=== PATIENT | male | born 1940 | race Two or more races ===

== ENCOUNTER 2018-08-27 15:20 | Inpatient (IN) | payer MEDICARE, OTHER ==
[~2018-08-27] VITALS: Ht 182.9 cm; Wt 80.9 kg
[2018-08-27 16:00] LABS: BASOPHILS # (AUTO) 0.1 K/uL (0.0-8.0); BASOPHILS % (AUTO) 1.1 % (0.0-2.0); EOSINOPHILS # (AUTO) 0.2 K/uL (0.0-0.7); EOSINOPHILS % (AUTO) 3.1 % (0.0-7.0); LYMPHOCYTES # (AUTO) 1.7 K/uL (20.0-40.0); LYMPHOCYTES % (AUTO) 33.4 % (20.5-51.5); MEAN CORPUSCULAR HEMOGLOBIN 26.4 uug (23.8-33.4); MEAN CORPUSCULAR HGB CONC 32 g/dL (32.5-36.3); MEAN CORPUSCULAR VOLUME 82.1 fL (73.0-96.2); MONOCYTES # (AUTO) 0.5 K/uL (2.0-10.0); MONOCYTES % (AUTO) 9.2 % (0.0-11.0); NEUTROPHILS # (AUTO) 2.7 K/uL (1.8-8.9); NEUTROPHILS % (AUTO) 53.2 % (38.5-71.5); PLATELET COUNT (AUTO) 284 K/uL (152-348); RED BLOOD CELL COUNT(AUTO) 3.04 MIL/uL (4.06-5.63); WHITE BLOOD COUNT (AUTO) 5.1 K/uL (3.6-10.2)
[2018-08-27 16:03] LABS: *BILIRUBIN,URIN NEGATIVE (NEGATIVE); *BLOOD, URINE NEGATIVE (NEGATIVE); *CLARITY,URINE CLEAR (CLEAR); *COLOR,URINE YELLOW (YELLOW); *KETONES,URINE NEGATIVE (NEGATIVE); *UROBILINOGEN,URINE 0.2 E.U./dl (NORMAL); LEUKOCYTE ESTERASE ,URINE NEGATIVE (NEGATIVE); NITRITE, URINE NEGATIVE (NEGATIVE); PH,URINE 5.5 (5.0-8.0); UGLUCOSE NEGATIVE (NEGATIVE)
[2018-08-27 16:22] LABS: CARBON DIOXIDE 24 mmol/L (21-32); CHLORIDE 108 mmol/L (98-107); GLUCOSE 130 mg/dL (74-106); POTASSIUM 3.5 mmol/L (3.5-5.1); UREA NITROGEN, BLOOD 26 mg/dL (7-18)
[2018-08-27 16:32] LABS: ALANINE AMINOTRANSFERASE 16 U/L (16-63); ALKALINE PHOSPHATASE 65 U/L (50-136); ASPARTATE AMINOTRANSFERASE 13 U/L (15-37); BILIRUBIN,DIRECT 0.1 mg/dL (0.0-0.2); BILIRUBIN,TOTAL 0.4 mg/dL (0.2-1.0); TOTAL PROTEIN, SERUM 6.6 g/dL (6.4-8.2)
[2018-08-27] MEDS ORDERED: LIDOCAINE HCL 2% 20 ML VIAL ONE (17:24)
[2018-08-27] MEDS ORDERED: FURO-152 PO (17:52)
[2018-08-27] MEDS ORDERED: MAGN400T6 PO (17:52)
[2018-08-27] MEDS ORDERED: DONE10TA44 PO (17:52)
[2018-08-27] MEDS ORDERED: LINA145C PO (17:52)
[2018-08-27] MEDS ORDERED: LORA10TA7 PO (17:52)
[2018-08-27] MEDS ORDERED: CARB-93 PO (17:52)
[2018-08-27] MEDS ORDERED: PRAZ1CAP2 PO (17:52)
[2018-08-27] MEDS ORDERED: LOSA1TAB42 PO (17:52)
[2018-08-27] MEDS ORDERED: PROP10TA68 PO (17:52)
[2018-08-27] MEDS ORDERED: PANT40TA2 PO (17:52)
[2018-08-27] MEDS ORDERED: QUET25TA PO (17:52)
[2018-08-27] MEDS ORDERED: TAMS-3 PO (17:52)
[2018-08-27] MEDS ORDERED: DULO60CA45 PO (17:52)
[2018-08-27] MEDS ORDERED: MELO-107 PO (17:52)
[2018-08-27] MEDS ORDERED: GABA-534 PO (17:52)
[2018-08-27 18:20] LABS: CSF GLUCOSE 80 mg/dL (40-70)
[2018-08-27 18:21] LABS: CSF PROTEIN 198 mg/dL (15-45)
[2018-08-27] MEDS ORDERED: SWABABLE VALVE TRANSFER SET EA MC ONE (18:44)
[2018-08-27] MEDS ORDERED: IV NORMAL SALINE 250 ML IV ONE (18:44)
[2018-08-27] MEDS ORDERED: NORMAL SALINE FLUSH 10 ML DISP.SYRIN ONE (18:44)
[2018-08-27] MEDS ORDERED: IOHEXOL 350 100 ML INFUS..BTL ONE (18:44)
[2018-08-27] MEDS ORDERED: MORPHINE SULFATE 4 MG/1 ML DISP.SYRIN IV ONE (20:45)
[2018-08-27] MEDS ORDERED: MORPHINE SULFATE 4 MG/1 ML DISP.SYRIN ONE (20:46)
[2018-08-27 21:40] VITALS: BP 140/53
[2018-08-27] MEDS ORDERED: ONDANSETRON 4 MG/2 ML VIAL IV PRN (21:45)
[2018-08-27] MEDS ORDERED: MAGNESIUM HYDROXIDE 30 ML LIQUID UDC PO PRN (21:45)
[2018-08-27 23:44] VITALS: BP 133/57
[2018-08-27] MEDS: MORPHINE SULFATE 2 MG/1 ML DISP.SYRIN IV PRN (23:52)
[2018-08-28] MEDS: MORPHINE SULFATE 2 MG/1 ML DISP.SYRIN IV PRN ×2 (02:59→06:19)
[2018-08-28 03:44] VITALS: BP 112/59
[2018-08-28] MEDS: PANTOPRAZOLE SODIUM 40 MG TABLET.DR PO SCH (06:18)
[2018-08-28 06:44] LABS: BASOPHILS # (AUTO) 0.1 K/uL (0.0-8.0); BASOPHILS % (AUTO) 1.3 % (0.0-2.0); EOSINOPHILS # (AUTO) 0.2 K/uL (0.0-0.7); EOSINOPHILS % (AUTO) 3.1 % (0.0-7.0); HEMATOCRIT 24.1 % (36.7-47.1); LYMPHOCYTES # (AUTO) 1.9 K/uL (20.0-40.0); LYMPHOCYTES % (AUTO) 36.6 % (20.5-51.5); MEAN CORPUSCULAR HEMOGLOBIN 26.8 uug (23.8-33.4); MEAN CORPUSCULAR HGB CONC 33 g/dL (32.5-36.3); MEAN CORPUSCULAR VOLUME 81.3 fL (73.0-96.2); MONOCYTES # (AUTO) 0.4 K/uL (2.0-10.0); MONOCYTES % (AUTO) 8.1 % (0.0-11.0); NEUTROPHILS # (AUTO) 2.7 K/uL (1.8-8.9); NEUTROPHILS % (AUTO) 50.9 % (38.5-71.5); PLATELET COUNT (AUTO) 260 K/uL (152-348); RED BLOOD CELL COUNT(AUTO) 2.97 MIL/uL (4.06-5.63); WHITE BLOOD COUNT (AUTO) 5.3 K/uL (3.6-10.2)
[2018-08-28 07:04] LABS: ALANINE AMINOTRANSFERASE 15 U/L (16-63); ALKALINE PHOSPHATASE 64 U/L (50-136); ASPARTATE AMINOTRANSFERASE 6 U/L (15-37); BILIRUBIN,TOTAL 0.3 mg/dL (0.2-1.0); CARBON DIOXIDE 25 mmol/L (21-32); CHLORIDE 106 mmol/L (98-107); CHOLESTEROL 142 mg/dL (<200); CREATININE 1.1 mg/dL (0.6-1.3); GLUCOSE 105 mg/dL (74-106); HDL CHOLESTEROL 48 mg/dL (40-60); MAGNESIUM 2.2 mg/dL (1.8-2.4); PHOSPHOROUS 2.7 mg/dL (2.5-4.9); POTASSIUM 3.4 mmol/L (3.5-5.1); THYROID STIMULATING HORMONE 2.584 mIU/mL (0.358-3.740); TOTAL PROTEIN, SERUM 6.3 g/dL (6.4-8.2); TRIGLYCERIDES 72 MG/DL (30-150); UREA NITROGEN, BLOOD 19 mg/dL (7-18)
[2018-08-28 07:13] LABS: IRON, SERUM 14 ug/dL (50-175)
[2018-08-28] MEDS: FUROSEMIDE 20 MG TABLET PO SCH (08:27)
[2018-08-28] MEDS: DULOXETINE 60 MG CAPSULE.DR PO SCH (08:27)
[2018-08-28] MEDS: CARBIDOPA/LEVODOPA 25-100MG TABLET PO SCH ×3 (08:27→16:28)
[2018-08-28] MEDS: MAGNESIUM OXIDE 400 MG TABLET PO SCH (08:27)
[2018-08-28] MEDS: LORATADINE 10 MG TABLET PO SCH (08:27)
[2018-08-28] MEDS: DONEPEZIL 10 MG TABLET PO SCH (08:27)
[2018-08-28] MEDS ORDERED: PANTOPRAZOLE SODIUM 40 MG TABLET.DR PO SCH (09:00)
[2018-08-28 11:19] VITALS: BP 138/58
[2018-08-28] MEDS ORDERED: POTASSIUM CHLORIDE 20 MEQ TAB.PRT.SR PO ONE (13:15)
[2018-08-28 15:08] VITALS: BP 124/67
[2018-08-28] MEDS ORDERED: DEXTROSE 50% 50 ML DISP.SYRIN IV PRN (15:15)
[2018-08-28] MEDS: BLOOD SUGAR DIAGNOSTIC 1 EACH STRIP VI SCH ×2 (16:30→20:39)
[2018-08-28] MEDS ORDERED: HYDR-3895 PO (16:31)
[2018-08-28] MEDS ORDERED: PREG50CA PO (16:32)
[2018-08-28] MEDS ORDERED: METF-440 PO (16:33)
[2018-08-28] MEDS: DOCUSATE SODIUM 100 MG CAPSULE PO SCH (20:34)
[2018-08-28] MEDS: GABAPENTIN 300 MG CAPSULE PO SCH (20:34)
[2018-08-28] MEDS: TAMSULOSIN HCL 0.4 MG CAP.SR.24H PO SCH (20:34)
[2018-08-28] MEDS: QUETIAPINE FUMARATE 25 MG TABLET PO SCH (20:34)
[2018-08-28 20:38] VITALS: BP 123/59
[2018-08-28] MEDS ORDERED: DOCUSATE SODIUM 250 MG CAPSULE PO SCH (21:00)
[2018-08-28 22:38] LABS: *OCCULT BLOOD STOOL NEGATIVE (NEGATIVE)
[2018-08-29 01:21] VITALS: BP 125/56
[2018-08-29] MEDS: PANTOPRAZOLE SODIUM 40 MG TABLET.DR PO SCH (06:15)
[2018-08-29] MEDS: BLOOD SUGAR DIAGNOSTIC 1 EACH STRIP VI SCH ×4 (06:35→20:57)
[2018-08-29 06:43] VITALS: BP 108/54
[2018-08-29 08:34] LABS: CARBON DIOXIDE 28 mmol/L (21-32); CHLORIDE 105 mmol/L (98-107); CREATININE 0.9 mg/dL (0.6-1.3); GLUCOSE 117 mg/dL (74-106); POTASSIUM 3.8 mmol/L (3.5-5.1); UREA NITROGEN, BLOOD 19 mg/dL (7-18)
[2018-08-29] MEDS: MAGNESIUM OXIDE 400 MG TABLET PO SCH (08:41)
[2018-08-29] MEDS: FUROSEMIDE 20 MG TABLET PO SCH (08:41)
[2018-08-29] MEDS: DULOXETINE 60 MG CAPSULE.DR PO SCH (08:41)
[2018-08-29] MEDS: CARBIDOPA/LEVODOPA 25-100MG TABLET PO SCH ×3 (08:41→16:38)
[2018-08-29] MEDS: LORATADINE 10 MG TABLET PO SCH (08:41)
[2018-08-29] MEDS: DONEPEZIL 10 MG TABLET PO SCH (08:41)
[2018-08-29] MEDS: LACTULOSE 20 G/30 ML LIQUID UDC PO PRN (11:12)
[2018-08-29 11:22] LABS: BASOPHILS # (AUTO) 0.1 K/uL (0.0-8.0); BASOPHILS % (AUTO) 1.1 % (0.0-2.0); EOSINOPHILS # (AUTO) 0.2 K/uL (0.0-0.7); EOSINOPHILS % (AUTO) 3.2 % (0.0-7.0); HEMATOCRIT 26.3 % (36.7-47.1); HEMOGLOBIN 8.5 g/dL (12.5-16.3); LYMPHOCYTES # (AUTO) 1.9 K/uL (20.0-40.0); LYMPHOCYTES % (AUTO) 31.3 % (20.5-51.5); MEAN CORPUSCULAR HEMOGLOBIN 26.2 uug (23.8-33.4); MEAN CORPUSCULAR HGB CONC 32 g/dL (32.5-36.3); MONOCYTES # (AUTO) 0.5 K/uL (2.0-10.0); MONOCYTES % (AUTO) 7.8 % (0.0-11.0); NEUTROPHILS # (AUTO) 3.4 K/uL (1.8-8.9); NEUTROPHILS % (AUTO) 56.6 % (38.5-71.5); PLATELET COUNT (AUTO) 291 K/uL (152-348); RED BLOOD CELL COUNT(AUTO) 3.25 MIL/uL (4.06-5.63); WHITE BLOOD COUNT (AUTO) 6.1 K/uL (3.6-10.2)
[2018-08-29 11:42] VITALS: BP 105/59
[2018-08-29] MEDS: INSULIN REGULAR, HUMAN 300 UNIT/3 ML VIAL SQ PRN (11:52)
[2018-08-29 15:19] VITALS: BP 156/60
[2018-08-29 20:31] VITALS: BP 130/58
[2018-08-29] MEDS: QUETIAPINE FUMARATE 25 MG TABLET PO SCH (20:51)
[2018-08-29] MEDS: DOCUSATE SODIUM 100 MG CAPSULE PO SCH (20:51)
[2018-08-29] MEDS: TAMSULOSIN HCL 0.4 MG CAP.SR.24H PO SCH (20:52)
[2018-08-29] MEDS: ACETAMINOPHEN 325 MG TABLET PO PRN (20:52)
[2018-08-29] MEDS: GABAPENTIN 300 MG CAPSULE PO SCH (20:52)
[2018-08-30] VITALS: BP 125/62
[2018-08-30 04:00] VITALS: BP 120/59
[2018-08-30 06:39] LABS: BASOPHILS # (AUTO) 0.1 K/uL (0.0-8.0); BASOPHILS % (AUTO) 1.1 % (0.0-2.0); EOSINOPHILS # (AUTO) 0.2 K/uL (0.0-0.7); EOSINOPHILS % (AUTO) 3.5 % (0.0-7.0); HEMATOCRIT 26.9 % (36.7-47.1); HEMOGLOBIN 8.9 g/dL (12.5-16.3); LYMPHOCYTES % (AUTO) 40.5 % (20.5-51.5); MEAN CORPUSCULAR HEMOGLOBIN 26.3 uug (23.8-33.4); MEAN CORPUSCULAR HGB CONC 33 g/dL (32.5-36.3); MEAN CORPUSCULAR VOLUME 79.5 fL (73.0-96.2); MONOCYTES # (AUTO) 0.5 K/uL (2.0-10.0); MONOCYTES % (AUTO) 9.4 % (0.0-11.0); NEUTROPHILS # (AUTO) 2.3 K/uL (1.8-8.9); NEUTROPHILS % (AUTO) 45.5 % (38.5-71.5); PLATELET COUNT (AUTO) 311 K/uL (152-348); RED BLOOD CELL COUNT(AUTO) 3.38 MIL/uL (4.06-5.63)
[2018-08-30] MEDS: PANTOPRAZOLE SODIUM 40 MG TABLET.DR PO SCH (06:45)
[2018-08-30] MEDS: BLOOD SUGAR DIAGNOSTIC 1 EACH STRIP VI SCH ×2 (06:49→11:32)
[2018-08-30 06:50] LABS: CARBON DIOXIDE 29 mmol/L (21-32); CHLORIDE 105 mmol/L (98-107); GLUCOSE 124 mg/dL (74-106); MAGNESIUM 2.4 mg/dL (1.8-2.4); PHOSPHOROUS 3.4 mg/dL (2.5-4.9); POTASSIUM 3.6 mmol/L (3.5-5.1); UREA NITROGEN, BLOOD 15 mg/dL (7-18)
[2018-08-30] MEDS: CARBIDOPA/LEVODOPA 25-100MG TABLET PO SCH ×2 (08:23→13:14)
[2018-08-30] MEDS: LORATADINE 10 MG TABLET PO SCH (08:23)
[2018-08-30] MEDS: MAGNESIUM OXIDE 400 MG TABLET PO SCH (08:23)
[2018-08-30] MEDS: FUROSEMIDE 20 MG TABLET PO SCH (08:23)
[2018-08-30] MEDS: DULOXETINE 60 MG CAPSULE.DR PO SCH (08:23)
[2018-08-30] MEDS: DONEPEZIL 10 MG TABLET PO SCH (08:23)
[2018-08-30] MEDS: LACTULOSE 20 G/30 ML LIQUID UDC PO PRN (10:42)
[2018-08-30] MEDS: INSULIN REGULAR, HUMAN 300 UNIT/3 ML VIAL SQ PRN (11:31)
[2018-08-30 11:36] VITALS: BP 124/58
[2018-08-30] MEDS: ACETAMINOPHEN 325 MG TABLET PO PRN (11:58)
[2018-08-30 15:30] VITALS: BP 118/61
== END 2018-08-30 15:30 | disposition home or self-care (01) | DRG 866 ==
LOC: ER 15:23 → MEDSURG3 21:18 → TELE3 21:39 → MEDSURG3 08-30 14:47
PROVIDERS: ADMIT Internal Medicine; ATTEND Hospitalist
PROC: 009U3ZX Drainage of Spinal Canal, Percutaneous Approach, Diagnostic (ICD-10-PCS; principal; 2018-08-27)
DX: B34.9 Viral infection, unspecified (principal); J98.11 Atelectasis; E44.1 Mild protein-calorie malnutrition; R51 Headache; Z90.49 Acquired absence of other specified parts of digestive tract; I25.10 Atherosclerotic heart disease of native coronary artery without angina pectoris; D50.0 Iron deficiency anemia secondary to blood loss (chronic); I25.2 Old myocardial infarction; E78.5 Hyperlipidemia, unspecified; K21.9 Gastro-esophageal reflux disease without esophagitis; Z86.010 Personal history of colon polyps; K44.9 Diaphragmatic hernia without obstruction or gangrene; I10 Essential (primary) hypertension; G30.9 Alzheimer's disease, unspecified; F02.80 Dementia in other diseases classified elsewhere, unspecified severity, without behavioral disturbance, psychotic disturbance, mood disturbance, and anxiety; K59.00 Constipation, unspecified; E11.40 Type 2 diabetes mellitus with diabetic neuropathy, unspecified; F32.9 Major depressive disorder, single episode, unspecified; F41.9 Anxiety disorder, unspecified; Z68.24 Body mass index [BMI] 24.0-24.9, adult; H53.8 Other visual disturbances; Z79.84 Long term (current) use of oral hypoglycemic drugs; I67.9 Cerebrovascular disease, unspecified; Z87.19 Personal history of other diseases of the digestive system; N28.1 Cyst of kidney, acquired
CPT/HCPCS: 36415; 70030-TC; 70450; 70496; 71045; 83550; 83605; 83735; 84100; 84157; 84443; 85025; 85651; 87040; 87086; 87400; 89051; 93005; 97116; 97530; A4663; G0378; J1815; J2270; J3490; J7050; Q9967

== ENCOUNTER 2018-12-24 09:29 | Emergency (ER) | payer MEDICARE, OTHER ==
[~2018-12-24] VITALS: Ht 170.2 cm; Wt 78.9 kg
[~2018-12-24 09:29] MED LIST: CARB-93 PO; DONE10TA44 PO; DULO60CA45 PO; FURO-152 PO; GABA-534 PO; HYDR-3895 PO; LINA145C PO; LORA10TA7 PO; LOSA1TAB42 PO; MAGN400T6 PO; METF-440 PO; PANT40TA2 PO; QUET25TA PO; TAMS-3 PO
[2018-12-24] MEDS ORDERED: HYDROMORPHONE 1 MG/1 ML DISP.SYRIN IM ONE (09:45)
[2018-12-24] MEDS ORDERED: ONDANSETRON 4 MG/2 ML VIAL IM ONE (09:45)
[2018-12-24] MEDS ORDERED: HYDROMORPHONE 2 MG/1 ML DISP.SYRIN ONE (09:49)
[2018-12-24] MEDS ORDERED: ONDANSETRON 4 MG/2 ML VIAL ONE (09:50)
[2018-12-24 10:22] LABS: BASOPHILS % (AUTO) 0.6 % (0.0-2.0); EOSINOPHILS # (AUTO) 0.2 K/uL (0.0-0.7); EOSINOPHILS % (AUTO) 2.7 % (0.0-7.0); HEMATOCRIT 37.3 % (36.7-47.1); HEMOGLOBIN 11.8 g/dL (12.5-16.3); LYMPHOCYTES # (AUTO) 1.9 K/uL (20.0-40.0); MEAN CORPUSCULAR HEMOGLOBIN 23.5 uug (23.8-33.4); MEAN CORPUSCULAR HGB CONC 32 g/dL (32.5-36.3); MONOCYTES # (AUTO) 0.5 K/uL (2.0-10.0); MONOCYTES % (AUTO) 5.5 % (0.0-11.0); NEUTROPHILS # (AUTO) 5.9 K/uL (1.8-8.9); NEUTROPHILS % (AUTO) 69.2 % (38.5-71.5); PLATELET COUNT (AUTO) 200 K/uL (152-348); RED BLOOD CELL COUNT(AUTO) 5.04 MIL/uL (4.06-5.63); WHITE BLOOD COUNT (AUTO) 8.6 K/uL (3.6-10.2)
[2018-12-24 10:26] LABS: CARBON DIOXIDE 27 mmol/L (21-32); CHLORIDE 104 mmol/L (98-107); CREATININE 1.1 mg/dL (0.6-1.3); GLUCOSE 123 mg/dL (74-106); POTASSIUM 4.2 mmol/L (3.5-5.1); UREA NITROGEN, BLOOD 22 mg/dL (7-18)
[2018-12-24 10:32] LABS: ALANINE AMINOTRANSFERASE 20 U/L (16-63); ALKALINE PHOSPHATASE 85 U/L (50-136); ASPARTATE AMINOTRANSFERASE 24 U/L (15-37); BILIRUBIN,TOTAL 0.4 mg/dL (0.2-1.0); TOTAL PROTEIN, SERUM 6.9 g/dL (6.4-8.2)
[2018-12-24 11:01] VITALS: BP 143/56
== END 2018-12-24 11:04 | disposition home or self-care (01) ==
LOC: ER 09:29
DX: M54.42 Lumbago with sciatica, left side (principal); I25.2 Old myocardial infarction; E11.9 Type 2 diabetes mellitus without complications; F32.9 Major depressive disorder, single episode, unspecified; F41.9 Anxiety disorder, unspecified; Z79.899 Other long term (current) drug therapy
CPT/HCPCS: 36415; 80053; 85025; 96372 ×2; 99283; J1170; J2405; A4663

== ENCOUNTER 2019-12-05 10:30 | Emergency (ER) | payer MEDICARE, OTHER ==
[~2019-12-05] VITALS: Ht 170.2 cm; Wt 77.1 kg
[~2019-12-05 10:30] MED LIST changes: -MAGN400T6 PO; +MAGN400T8 PO
--- NOTE | 2019-12-05 11:35 | NUR ---
Patient is back in room from Radiology. No new acute distress noted.
--- NOTE | 2019-12-05 12:14 | NUR ---
Patient discharged to home in stable condition. Written and verbal after care instructions given. Patient verbalizes understanding of instructions. Stressed follow up or return to ER for worsening s/s. Patient ambulating with steady gait. NAD noted
[2019-12-05 12:16] VITALS: BP 128/73
== END 2019-12-05 12:14 | disposition home or self-care (01) ==
LOC: ER 10:30
DX: S02.2XXA Fracture of nasal bones, initial encounter for closed fracture (principal); S70.12XA Contusion of left thigh, initial encounter; S09.90XA Unspecified injury of head, initial encounter; W01.190A Fall on same level from slipping, tripping and stumbling with subsequent striking against furniture, initial encounter; Y92.032 Bedroom in apartment as the place of occurrence of the external cause; I25.2 Old myocardial infarction; M54.2 Cervicalgia; R00.1 Bradycardia, unspecified; I44.0 Atrioventricular block, first degree; E11.9 Type 2 diabetes mellitus without complications; Z79.84 Long term (current) use of oral hypoglycemic drugs
CPT/HCPCS: 70450; 70486; 72125; 93005; A4663

== ENCOUNTER 2020-04-11 17:04 | Emergency (ER) | payer MEDICARE, OTHER ==
[~2020-04-11] VITALS: Ht 170.2 cm; Wt 77.1 kg
--- NOTE | 2020-04-11 17:26 | NUR ---
Dr Villa at the bedside for MSE.
[2020-04-11] MEDS ORDERED: IBUPROFEN 600 MG TABLET PO ONE (17:30)
--- NOTE | 2020-04-11 17:30 | NUR ---
Cleaned abrassion site on Lt knee.
[2020-04-11] MEDS ORDERED: TDAP DIPH,PERTUSS,TET VAC/PF 0.5 ML DISP.SYRIN IM ONE ×2 (17:34→17:45)
[2020-04-11] MEDS ORDERED: IBUPROFEN 600 MG TABLET ONE (17:39)
[2020-04-11 18:20] VITALS: BP 140/68
== END 2020-04-11 18:24 | disposition home or self-care (01) ==
LOC: ER 17:04
DX: S80.02XA Contusion of left knee, initial encounter (principal); S80.212A Abrasion, left knee, initial encounter; W01.0XXA Fall on same level from slipping, tripping and stumbling without subsequent striking against object, initial encounter; Y92.89 Other specified places as the place of occurrence of the external cause; I25.2 Old myocardial infarction; E11.9 Type 2 diabetes mellitus without complications; Z79.84 Long term (current) use of oral hypoglycemic drugs
CPT/HCPCS: 90715; A4663

== ENCOUNTER 2022-05-17 14:59 | Emergency (ER) | payer MEDICARE, OTHER ==
[~2022-05-17] VITALS: Ht 167.6 cm; Wt 88.9 kg
[~2022-05-17 14:59] MED LIST changes: +CARB-300 PO; -CARB-93 PO
[2022-05-17] MEDS ORDERED: HYDROCODONE/APAP 5-325MG TABLET PO ONE (15:45)
[2022-05-17] MEDS ORDERED: HYDROCODONE/APAP 5-325MG TABLET ONE (15:58)
--- NOTE | 2022-05-17 16:21 | NUR ---
Patient presents to the ER after crushing his hand while closing his car door. Patient Fingers painful with movement. Patient A/O X 4, seen by the MD, X-Ray ordered and completed at the bedside. Patient medicated as per MD orders (see eMAR). Patient's fingers immobilized using Bob Bandage. Patient seen and cleared for discharge home, discharge instructions provided. Patient is stable, left ambulatory.
[2022-05-17] MEDS ORDERED: IBUP-1955 PO (16:22)
== END 2022-05-17 16:57 | disposition home or self-care (01) ==
LOC: ER 15:05
DX: S63.611A Unspecified sprain of left index finger, initial encounter (principal); S63.613A Unspecified sprain of left middle finger, initial encounter; S63.615A Unspecified sprain of left ring finger, initial encounter; S63.617A Unspecified sprain of left little finger, initial encounter; V48.4XXA Person boarding or alighting a car injured in noncollision transport accident, initial encounter; Y92.89 Other specified places as the place of occurrence of the external cause; G20 Parkinson's disease; F02.80 Dementia in other diseases classified elsewhere, unspecified severity, without behavioral disturbance, psychotic disturbance, mood disturbance, and anxiety; Z85.828 Personal history of other malignant neoplasm of skin; I10 Essential (primary) hypertension; Z90.49 Acquired absence of other specified parts of digestive tract; K21.9 Gastro-esophageal reflux disease without esophagitis; N40.0 Benign prostatic hyperplasia without lower urinary tract symptoms; F32.A Depression, unspecified; E11.9 Type 2 diabetes mellitus without complications; Z79.84 Long term (current) use of oral hypoglycemic drugs; Z79.899 Other long term (current) drug therapy
CPT/HCPCS: 73130; A4663